=== PATIENT | male | born 1980 | race Caucasian/White ===

== ENCOUNTER 2018-12-30 22:08 | Emergency (ER) | payer OTHER ==
[~2018-12-30] VITALS: Ht 188 cm; Wt 199.1 kg
[2018-12-30 22:40] VITALS: Ht 188 cm; Wt 199.1 kg
[2018-12-30 23:18] VITALS: BP 139/75
== END 2018-12-30 23:18 | disposition home or self-care (01) ==
LOC: ED 22:08
DX: F41.9 Anxiety disorder, unspecified (principal); F41.0 Panic disorder [episodic paroxysmal anxiety]

== ENCOUNTER 2019-05-07 02:58 | Emergency (ER) | payer OTHER ==
[~2019-05-07] VITALS: Ht 188 cm; Wt 199.6 kg
[2019-05-07 03:04] VITALS: Ht 188 cm; Wt 199.6 kg
[2019-05-07 06:48] VITALS: BP 132/85
== END 2019-05-07 06:48 | disposition home or self-care (01) ==
LOC: ED 02:58
DX: R07.89 Other chest pain (principal); M25.512 Pain in left shoulder; R05 Cough; G47.30 Sleep apnea, unspecified; E66.01 Morbid (severe) obesity due to excess calories; Z68.43 Body mass index [BMI] 50.0-59.9, adult
CPT/HCPCS: Q0092

== ENCOUNTER 2020-02-10 06:00 | Emergency (ER) | payer OTHER ==
[~2020-02-10] VITALS: Ht 188 cm; Wt 170.6 kg
[2020-02-10 06:03] VITALS: Ht 188 cm; Wt 170.6 kg
[2020-02-10 07:25] LABS: BASOPHIL % 0.3 % (0-2); PLATELET COUNT 217 x10^3mcL (130-400)
[2020-02-10 07:27] LABS: RED CELL DISTRIBUTION WIDTH 14.9 % (11.5-14.5)
[2020-02-10 07:30] LABS: CALCIUM 9.4 mg/dL (8.5-10.1); CARBON DIOXIDE 27.5 mmol/L (21-32); CHLORIDE SERUM 103 mmol/L (98-107); GFR1 > 60 mL/min; GLUCOSE SERUM 110 mg/dL (74-106); POTASSIUM SERUM 4.2 mmol/L (3.5-5.1); SODIUM SERUM 140 mmol/L (136-145)
[2020-02-10 07:34] LABS: ALBUMIN 4.1 g/dL (3.4-5.0); ALKALINE PHOSPHATASE 75 U/L (46-116); ALT/SGPT 40 U/L (16-63); AMYLASE 50 U/L (25-115); AST/SGOT 24 U/L (15-37); BILIRUBIN TOTAL 0.4 mg/dL (0.20-1.00); LIPASE 93 IU/L (73-393); TOTAL PROTEIN, SERUM 7.6 g/dL (6.4-8.2)
[2020-02-10 08:08] VITALS: BP 133/94
== END 2020-02-10 08:08 | disposition home or self-care (01) ==
LOC: ED 06:00
PROVIDERS: Emergency Medicine
DX: R10.32 Left lower quadrant pain (principal)
CPT/HCPCS: 36415; J1885; Q0092

== ENCOUNTER 2020-06-27 07:55 | Emergency (ER) | payer OTHER ==
[~2020-06-27] VITALS: Ht 188 cm; Wt 176.9 kg
[2020-06-27 08:00] VITALS: Ht 188 cm; Wt 176.9 kg
[2020-06-27 08:32] LABS: BASOPHIL % 0.4 % (0-2); PLATELET COUNT 216 x10^3mcL (130-400)
[2020-06-27 08:42] LABS: CALCIUM 9.5 mg/dL (8.5-10.1); CARBON DIOXIDE 28.6 mmol/L (21-32); CHLORIDE SERUM 103 mmol/L (98-107); GFR1 > 60 mL/min; GLUCOSE SERUM 112 mg/dL (74-106); POTASSIUM SERUM 4.1 mmol/L (3.5-5.1); SODIUM SERUM 140 mmol/L (136-145)
[2020-06-27 08:43] LABS: RED CELL DISTRIBUTION WIDTH 14.7 % (11.5-14.5)
[2020-06-27 08:47] LABS: ALKALINE PHOSPHATASE 80 U/L (46-116); ALT/SGPT 45 U/L (16-63); AST/SGOT 24 U/L (15-37); BILIRUBIN TOTAL 0.44 mg/dL (0.20-1.00); TOTAL PROTEIN, SERUM 7.7 g/dL (6.4-8.2)
[2020-06-27 09:55] VITALS: BP 129/90
== END 2020-06-27 09:55 | disposition home or self-care (01) ==
LOC: ED 07:55
PROVIDERS: Emergency Medicine
DX: F41.9 Anxiety disorder, unspecified (principal); I10 Essential (primary) hypertension
CPT/HCPCS: Q0092